=== PATIENT | female | born 1955 | race Caucasian/White ===

== ENCOUNTER 2021-09-18 09:12 | Observation (INO) | payer MEDICARE ==
[~2021-09-18] VITALS: Ht 154.9 cm; Wt 74.0 kg
[~2021-09-18 09:12] MED LIST: AMLO2.5T2 PO; ATORVASTATIN CA80 MG; GABA300C18 PO; GLIP5TAB22; LISI1TAB39 PO; METF10007; SERT-267
[2021-09-18 09:36] LABS: BASO # 0.1 x10^3/uL (0.0-0.2); BASO % 1 % (0-3); EOS # 0.1 x10^3/uL (0.0-0.7); EOS % 1 % (0-3); HEMATOCRIT 46.8 % (36.0-47.0); HEMOGLOBIN 15.2 g/dL (12.0-15.5); LYMPH % 29 % (24-48); MEAN CORPUSCULAR HEMOGLOBIN 28 pg (25-35); MEAN CORPUSCULAR HGB CONC 33 g/dL (31-37); MEAN CORPUSCULAR VOLUME 86 fL (79-100); MONO # 0.5 x10^3/uL (0.0-1.1); MONO % 8 % (0-9); NEUT # 4.2 x10^3/uL (1.8-7.7); NEUT % 62 % (31-73); PLATELET COUNT 279 x10^3/uL (140-400); RED BLOOD COUNT 5.47 x10^6/uL (3.50-5.40); RED CELL DISTRIBUTION WIDTH 13.1 % (11.5-14.5); WHITE BLOOD COUNT 6.9 x10^3/uL (4.0-11.0)
[2021-09-18] MEDS ORDERED: CONTRAST GIVEN. MC PRN (09:45)
[2021-09-18] MEDS ORDERED: IOHEXOL 300 MG/ML 100ML VIAL. IV ONE (09:45)
[2021-09-18 09:52] LABS: PROTHROMBIN TIME PATIENT 11.8 SEC (11.7-14.0)
[2021-09-18 09:54] LABS: CALCIUM 8.4 mg/dL (8.5-10.1); CREATININE 0.8 mg/dL (0.6-1.0); GFR 71.5
[2021-09-18 09:57] LABS: ACETAMIN < 2 mcg/ml (10-30); ETHANOL < 10 mg/dL (0-10); SALIC 1.4 mg/dL (2.8-20.0)
[2021-09-18 09:59] LABS: D-DIMER 0.5 ug/mlFEU (0.00-0.50)
[2021-09-18 10:07] LABS: ALBUMIN 2.9 g/dL (3.4-5.0); ALBUMIN/GLOBULIN RATIO 0.8 (1.0-1.7); MAGNESIUM 1.9 mg/dL (1.8-2.4); TOTAL BILIRUBIN 0.3 mg/dL (0.2-1.0); TOTAL PROTEIN 6.4 g/dL (6.4-8.2)
--- NOTE | 2021-09-18 10:16 | RAD ---
CT STROKE HEAD W/O Date: 09/18/2021 9:25 AM Clinical Indication: code stroke, difficulty speaking Comparison: None. Technique: 5 mm axial tomographic images were obtained of the head without contrast. These were view ed on brain and bone windows. One or more of the following dose reduction techniques were utilized: A utomated exposure control (AEC), Adjustment of mA and/or kV according to patient size, Use of iterati ve reconstruction technique such as ASiR, CT scan done according to ALARA and image gently/image garcia ly Findings: The brain parenchyma is normal in attenuation. No intra- or extra-axial mass or fluid collection. No acute hemorrhage. The ventricles are normal in size, shape, and morphology. The aviles-white matter juan ction is normal. The subarachnoid cisterns are patent. The visualized paranasal sinuses are normal. The visualized portions of the orbits and globes are no rmal. The mastoid air cells are clear. The color matcher topogram shows no lytic lesion or fracture. Impression: No acute hemorrhage or large territory aviles-white loss. FOR INTERNAL CODING PURPOSES Critical result: Findings discussed with NEY LACY MD at 09/18/2021 9:35 AM. RESULT CODE: (C) Electronically signed by: Will Carrasco MD (09/18/2021 10:13 AM) [id number]
--- NOTE | 2021-09-18 10:45 | RAD ---
EXAMINATION: Chest radiograph. VIEWS: Single AP view of the chest COMPARISON: Chest radiograph from 04/09/2015 INDICATION:66 years, Female, CVA. FINDINGS: Normal cardiomediastinal silhouette. Diffuse increased interstitial markings favoring chronic interst itial lung disease. Bibasilar linear opacities favoring subsegmental atelectasis. Likely calcified bi lateral hilar lymph nodes/granulomas. No pleural effusion or pneumothorax. No acute osseous process. IMPRESSION: Pulmonary findings favor chronic interstitial changes versus mild interstitial pulmonary edema with l ikely bibasilar subsegmental atelectasis. Electronically signed by: Jonathan Rose DO (09/18/2021 10:43 AM) [id number]
--- NOTE | 2021-09-18 10:45 | RAD ---
CTA HEAD History: CVA. Difficulty speaking. Technique: After bolus of intravenous contrast, volumetric CT data acquisition was acquired of the he ad. Multiplanar reconstruction images to include MIP and 3-D reconstruction images are submitted. Any determination of stenosis is based on NASCET criteria. Comparison: CT head 09/18/2021 Findings: ICA: No stenosis, occlusion or aneurysm. MCA: No stenosis, occlusion or aneurysm. ELEN: Severe stenosis of the precommunicating left ELEN at the origin from the left ICA with approximat oscar 3 mm segment of barely perceivable string-like enhancement (axial 158). Otherwise the left ELEN is normal caliber and normally enhancing, possibly in part via the anterior communicating. The right AC A is normal. CHARTER COACH DRIVER: No stenosis, occlusion or aneurysm. Basilar artery: No stenosis, occlusion or aneurysm. Distal vertebral arteries: No stenosis, occlusion or aneurysm. Impression: Severe stenosis of a short 3 mm segment of the origin of the pre-communicating left ELEN with normal c aliber and enhancement distally within the remainder the left ELEN. Findings discussed with NEY LACY MD at 09/18/2021 10:40 AM. FOR INTERNAL CODING PURPOSES RESULT CODE: (C) Exposure: One or more of the following individualized dose reduction techniques were utilized for thi s examination: 1. Automated exposure control 2. Adjustment of the mA and/or kV according to patient size 3. Use of iterative reconstruction technique. Electronically signed by: Landry Ferreira MD (09/18/2021 10:43 AM) [id number]
[2021-09-18 10:47] LABS: INFLUENZA A PATIENT NEGATIVE (NEGATIVE); INFLUENZA B PATIENT NEGATIVE (NEGATIVE)
--- NOTE | 2021-09-18 11:22 | PHYS DOC ---
Past Medical History Past Medical History: Diabetes-Type II, High Cholesterol, Hypertension Past Surgical History: Appendectomy, Knee Replacement, Tonsillectomy Additional Past Surgical Histo: GANGLIAN CYST Smoking Status: Never Smoker Alcohol Use: Rarely Drug Use: None Adult General Chief Complaint Chief Complaint: NEURO SYMPTOMS/DEFICITS HPI HPI Patient is a 66 year old female who presents with strokelike symptoms decided yesterday afternoon. Patient has had trouble finding her words according to family members. She normally is alert and appropriate but yesterday she began to speak in short sentences that were not complete. She did not have any focal areas of weakness or numbness nor has she developed any worsening of symptoms. The patient does seem to be fairly alert right now and is answering questions appropriately. At time she does struggle to find words though. No fever, no head injury or recent trauma. She denies chest pain, shortness of breath or abdominal complaints. Review of Systems Review of Systems Constitutional: Denies fever Eyes: Denies change in visual acuity or eye pain HENT: Denies sore throat Respiratory: Denies shortness of breath Cardiovascular: Denies chest pain GI: Denies abd pain : Denies dysuria Musculoskeletal: Denies back or extremity injury Integument: Denies rash or skin lesions Neurologic: Denies headache, focal weakness or sensory changes All other systems were reviewed and found to be within normal limits, except as documented in this note. Current Medications Current Medications Current Medications Medications (Trade) Dose Ordered Sig/Tong Start Time Stop Time Status Last Admin Dose Admin Info (CONTRAST GIVEN -- Rx MONITORING) 1 each PRN DAILY PRN 09/18/21 09:45 09/20/21 09:44 Iohexol (Omnipaque 300 Mg/ml) 75 ml 1X ONCE 09/18/21 09:45 09/18/21 09:46 DC 09/18/21 09:46 75 ML Allergies Allergies Allergies Coded Allergies Type Severity Reaction Last Updated Verified nitroglycerin Adverse Reaction Severe SEIZURE 09/18/21 No Physical Exam Physical Exam Constitutional: Well developed, well nourished, no acute distress, non-toxic appearance. HENT: Normocephalic, atraumatic, bilateral external ears normal, mucosa moist, nose normal. Eyes: EOMI, conjunctiva normal, no discharge. Neck: Normal range of motion, supple, no stridor, no meningeal signs. Cardiovascular: Regular rate and rhythm Lungs & Thorax: Bilateral breath sounds clear to auscultation Abdomen: Soft, no tenderness or obvious masses Skin: Warm, dry, no erythema, no rash. Extremities: No tenderness, no cyanosis, no clubbing, ROM intact, no edema. Neurologic: Alert and oriented, normal motor function, normal sensory function grossly. NIHSS score of 2 for loss of right nasolabial fold slightly and loss of pinprick to left forearm slightly. Psychologic: Affect normal, judgement normal, mood normal. Current Patient Data Vital Signs Vital Signs Date Time Temp Pulse Resp B/P (MAP) Pulse Ox O2 Delivery O2 Flow Rate FiO2 09/18/21 10:19 94 14 179/92 (121) 94 Room Air 09/18/21 09:15 98.6 98.6 Lab Values Laboratory Tests Test 09/18/21 09:16 09/18/21 09:20 09/18/21 09:35 09/18/21 10:12 Glucose (Fingerstick) 267 mg/dL (70-99) H White Blood Count 6.9 x10^3/uL (4.0-11.0) Red Blood Count 5.47 x10^6/uL (3.50-5.40) H Hemoglobin 15.2 g/dL (12.0-15.5) Hematocrit 46.8 % (36.0-47.0) Mean Corpuscular Volume 86 fL (79-100) Mean Corpuscular Hemoglobin 28 pg (25-35) Mean Corpuscular Hemoglobin Concent 33 g/dL (31-37) Red Cell Distribution Width 13.1 % (11.5-14.5) Platelet Count 279 x10^3/uL (140-400) Neutrophils (%) (Auto) 62 % (31-73) Lymphocytes (%) (Auto) 29 % (24-48) Monocytes (%) (Auto) 8 % (0-9) Eosinophils (%) (Auto) 1 % (0-3) Basophils (%) (Auto) 1 % (0-3) Neutrophils # (Auto) 4.2 x10^3/uL (1.8-7.7) Lymphocytes # (Auto) 2.0 x10^3/uL (1.0-4.8) Monocytes # (Auto) 0.5 x10^3/uL (0.0-1.1) Eosinophils # (Auto) 0.1 x10^3/uL (0.0-0.7) Basophils # (Auto) 0.1 x10^3/uL (0.0-0.2) Prothrombin Time 11.8 SEC (11.7-14.0) Prothrombin Time INR 0.9 (0.8-1.1) Activated Partial Thromboplast Time 17 SEC (24-38) L D-Dimer (Ute) 0.50 ug/mlFEU (0.00-0.50) Sodium Level 140 mmol/L (136-145) Potassium Level 4.0 mmol/L (3.5-5.1) Chloride Level 103 mmol/L (98-107) Carbon Dioxide Level 27 mmol/L (21-32) Anion Gap 10 (6-14) Blood Urea Nitrogen 15 mg/dL (7-20) Creatinine 0.8 mg/dL (0.6-1.0) Estimated GFR (Cockcroft-Gault) 71.5 BUN/Creatinine Ratio 19 (6-20) Glucose Level 285 mg/dL (70-99) H Lactic Acid Level 1.2 mmol/L (0.4-2.0) Calcium Level 8.4 mg/dL (8.5-10.1) L Magnesium Level 1.9 mg/dL (1.8-2.4) Total Bilirubin 0.3 mg/dL (0.2-1.0) Aspartate Amino Transferase (AST) 13 U/L (15-37) L Alanine Aminotransferase (ALT) 20 U/L (14-59) Alkaline Phosphatase 108 U/L (46-116) Troponin I High Sensitivity 7 ng/L (4-50) RJ-Gdc-C-Type Natriuretic Peptide 37 pg/mL (0-124) Total Protein 6.4 g/dL (6.4-8.2) Albumin 2.9 g/dL (3.4-5.0) L Albumin/Globulin Ratio 0.8 (1.0-1.7) L Lipase 80 U/L (73-393) Salicylates Level 1.4 mg/dL (2.8-20.0) L Salicylate Last Dose Date Unknown Salicylate Last Dose Time Unknown Acetaminophen Level < 2 mcg/ml (10-30) L Acetaminophen Last Dose Date Unknown Acetaminophen Last Dose Time Unknown Ethyl Alcohol Level < 10 mg/dL (0-10) Ammonia 11 mcmol/L (11-34) Influenza Type A Antigen Negative (NEGATIVE) Influenza Type B Antigen Negative (NEGATIVE) SARS-CoV-2 Antigen (Rapid) Negative (NEGATIVE) Laboratory Tests 09/18/21 09:20 Laboratory Tests 09/18/21 09:20 EKG EKG [] Interpretation Time: Twelve-lead EKG demonstrates a sinus rhythm with a rate of 95. VT, QRS and QT corrected are within normal limits. No ST segment elevation or depression. Radiology/Procedures Radiology/Procedures [] Impressions: PATIENT: LUCAS WATT BACCOUNT: [id number]#: [id number] : 1955 LOCATION: ER AGE: 66 SEX: F EXAM STATUS: PRE ER ORD. PHYSICIAN: NEY LACY MD REASON: code stroke, difficulty speaking PROCEDURE: CT CODE STROKE HEAD WO CT STROKE HEAD W/O Date: 09/18/2021 9:25 AM Clinical Indication: code stroke, difficulty speaking Comparison: None. Technique: 5 mm axial tomographic images were obtained of the head without contrast. These were viewed on brain and bone windows. One or more of the following dose reduction techniques were utilized: Automated exposure control (AEC), Adjustment of mA and/or kV according to patient size, Use of iterative reconstruction technique such as ASiR, CT scan done according to ALARA and image gently/image wisely Findings: The brain parenchyma is normal in attenuation. No intra- or extra-axial mass or fluid collection. No acute hemorrhage. The ventricles are normal in size, shape, and morphology. The aviles-white matter junction is normal. The subarachnoid cisterns are patent. The visualized paranasal sinuses are normal. The visualized portions of the orbits and globes are normal. The mastoid air cells are clear. The molder setter topogram shows no lytic lesion or fracture. Impression: No acute hemorrhage or large territory aviles-white loss. FOR INTERNAL CODING PURPOSES Critical result: Findings discussed with NEY LACY MD at 09/18/2021 9:35 AM. RESULT CODE: (C) Electronically signed by: Chris Carrasco MD (09/18/2021 10:13 AM) [id number] DICTATED and SIGNED BY: CHRIS CARRASCO MD DATE: 09/18/21 1010 PATIENT: LUCAS WATT ACCOUNT: [id number] : 1955 LOCATION: ER AGE: 66 SEX: F EXAM STATUS: REG ER ORD. PHYSICIAN: NEY LACY MD REASON: cva PROCEDURE: CT ANGIOGRAPHY HEAD CTA HEAD History: CVA. Difficulty speaking. Technique: After bolus of intravenous contrast, volumetric CT data acquisition was acquired of the head. Multiplanar reconstruction images to include MIP and 3-D reconstruction images are submitted. Any determination of stenosis is based on NASCET criteria. Comparison: CT head 09/18/2021 Findings: ICA: No stenosis, occlusion or aneurysm. MCA: No stenosis, occlusion or aneurysm. ELEN: Severe stenosis of the precommunicating left ELEN at the origin from the left ICA with approximately 3 mm segment of barely perceivable string-like enhancement (axial 158). Otherwise the left ELEN is normal caliber and normally enhancing, possibly in part via the anterior communicating. The right ELEN is normal. SUPERINTENDENT BOARD MILL: No stenosis, occlusion or aneurysm. Basilar artery: No stenosis, occlusion or aneurysm. Distal vertebral arteries: No stenosis, occlusion or aneurysm. Impression: Severe stenosis of a short 3 mm segment of the origin of the pre-communicating left ELEN with normal caliber and enhancement distally within the remainder the left ELEN. Findings discussed with NEY LACY MD at 09/18/2021 10:40 AM. FOR INTERNAL CODING PURPOSES RESULT CODE: (C) Exposure: One or more of the following individualized dose reduction techniques were utilized for this examination: 1. Automated exposure control 2. Adjustment of the mA and/or kV according to patient size 3. Use of iterative reconstruction technique. Electronically signed by: Landry Cash MD (09/18/2021 10:43 AM) [id number] DICTATED and SIGNED BY: LANDRY CASH MD DATE: 09/18/21 1034 PATIENT: LUCAS WATT ACCOUNT: [id number] : 1955 LOCATION: ER AGE: 66 SEX: F EXAM STATUS: REG ER ORD. PHYSICIAN: NEY LACY MD REASON: cva PROCEDURE: CHEST AP ONLY EXAMINATION: Chest radiograph. VIEWS: Single AP view of the chest COMPARISON: Chest radiograph from 04/09/2015 INDICATION:66 years, Female, CVA. FINDINGS: Normal cardiomediastinal silhouette. Diffuse increased interstitial markings favoring chronic interstitial lung disease. Bibasilar linear opacities favoring subsegmental atelectasis. Likely calcified bilateral hilar lymph nodes/gran ulomas. No pleural effusion or pneumothorax. No acute osseous process. IMPRESSION: Pulmonary findings favor chronic interstitial changes versus mild interstitial pulmonary edema with likely bibasilar subsegmental atelectasis. Electronically signed by: Alanna Rose DO (09/18/2021 10:43 AM) [id number] DICTATED and SIGNED BY: ALANNA ROSE DO DATE: 09/18/21 1040 Course & Med Decision Making Course & Med Decision Making Pertinent Labs and Imaging studies reviewed. (See chart for details) [] This is a 66-year-old female presents with an expressive aphasia which seems to be improving. CT scan of the head is negative, contrasted CT demonstrates a stenotic area at the origin of the left anterior communicating artery. Lab studies are unrevealing. At this time we will keep the patient in the hospital for further neurologic assessment and recommendations, patient is in stable condition at this time. Dragon Disclaimer Dragon Disclaimer This electronic medical record was generated, in whole or in part, using a voice recognition dictation system. Departure Departure Impression: Primary Impression: Aphasia Disposition: ADMITTED INPATIENT Condition: STABLE Referrals: KRYSTEN BARRERA MD (PCP) NEY LACY MD Sep 18, 2021 11:22
[2021-09-18 11:32] LABS: BASE EXCESS ABG -3 mmol/L (-3-3); HCO3 ABG 22 mmol/L (21-28); PCO2 ABG 39 mmHg (35-46); PO2 ABG 75 mmHg (65-108); SAT O2 ABG 94 % (92-99)
[2021-09-18 11:36] LABS: FIO2 ABG RA
--- NOTE | 2021-09-18 12:44 | HP ---
DATE OF SERVICE: 09/18/2021 ADMIT DATE: 09/18/2021 CHIEF COMPLAINT: Speech changes. HISTORY OF PRESENT ILLNESS: The patient is a pleasant 66-year-old female who presented to the ER with speech changes. She is speaking in short sentences. She can only get a word or two out. She is having problems finding her words. Clinically, seems like she may be having some early stroke symptoms. I discussed the case with ER physician. We are going to admit the patient and consult Neurology. PAST MEDICAL HISTORY: Diabetes, hypertension, hyperlipidemia, appendectomy, knee replacement, tonsillectomy, ganglion cyst surgery. ALLERGIES: NITROGLYCERIN. FAMILY HISTORY: Diabetes. SOCIAL HISTORY: She does not drink, smoke or take drugs. MEDICATIONS: Reviewed. Please refer to the MRAD. REVIEW OF SYSTEMS: Difficult to obtain as she cannot speak very well. PHYSICAL EXAMINATION: VITALS: Within normal limits and are stable. GENERAL: She is a little anxious. HEENT: Normal cephalic atraumatic, external auditory canals are patent. EYES: Extraocular muscles are intact, pupils are equally round and reactive to light and accommodation. MUSCULOSKELETAL: Well developed, well nourished, good range of motion. ENDOCRINE: No thyromegaly was palpated. LYMPHATICS: No cervical chain or axillary nodes were noted. HEMATOPOIETIC: No bruising. NECK: Supple, no JVD, no thyromegaly was noted. LUNGS: Clear to auscultation in all lung ramirez without rhonchi or wheezing. HEART: RRR, S1, S2 present. Peripheral pulses intact, no obvious murmurs were noted. ABDOMEN: Soft, nontender. Positive bowel sounds no organomegaly, normal bowel sounds. EXTREMITIES: Without any cyanosis, clubbing, or edema. Pedal pulses intact, Homans sign is negative. NEUROLOGIC: She has mild expressive aphasia. She is able to get a word or two out. PSYCHIATRIC: She is a little anxious. SKIN: No ulcerations or rashes, good skin turgor, no jaundice. VASCULAR: Good capillary refill, neurovascular bundle appears to be intact. LABORATORY DATA: White count 6.9, hemoglobin 15.2, platelets 279. Electrolytes are normal. INR is 0.9. Drug screen negative. COVID testing negative. DIAGNOSTIC DATA: CT of the head negative. ASSESSMENT AND PLAN: Stroke symptoms with mild expressive aphasia. The patient will be admitted. We will consult Neurology. Home medications. Deep vein thrombosis prophylaxis. Full code. Neuro checks q.4. PT, OT, speech therapy. Daily aspirin. JENNIFER/KALEN DR: Nando TID: [id number]
[2021-09-18 12:56] VITALS: BP 206/91
[2021-09-18] MEDS ORDERED: ASPIRIN CHEWABLE 81 MG TABLET. PO SCH (13:00)
[2021-09-18 13:28] LABS: BARBITURATES NEG (NEG); BENZODIAZEPINES NEG (NEG); CANNABINOIDS NEG (NEG); COCAINE NEG (NEG); METHADONE NEG (NEG); OPIATES NEG (NEG); PHENCYCLIDINE NEG (NEG)
[2021-09-18 13:30] LABS: BACTERIA,URINE FEW /HPF (0-FEW); RBC,URINE 0 /HPF (0-2)
[2021-09-18 13:31] LABS: AMPHETAMINE/METHAMPHETAMINE NEG (NEG)
--- NOTE | 2021-09-18 13:40 | EKG ---
[facility] [address] [place] [address] Test Date: 2021-09-18 Test Time: 09:36:43 Pat Name: LUCAS WATT Department: Room: 208 1 Gender: F Hat Measurer: : 1955 Requested By: NEY LACY Order Number: [id number] Reading MD: Catracho Carballo Measurements Intervals [place] Rate: 95 P: 41 TX: 158 QRS: 55 QRSD: 78 T: 28 QT: 346 QTc: 438 Interpretive Statements SINUS RHYTHM QRS(T) CONTOUR ABNORMALITY CONSIDER ANTEROSEPTAL MYOCARDIAL DAMAGE POSSIBLY ABNORMAL ECG RI6.01 Compared to ECG 04/10/2015 13:48:02 No significant changes Electronically Signed On 09-22-2021 21:45:31 CDT by Catracho Carballo
--- NOTE | 2021-09-18 14:00 | NUR ---
66 Y/O to 208 from ER . [facility]/ slight change documented. Assist to BR -steady gait w little assist required. Aby swallow .study completed. passed-late lunch order placed.Tolerated meal. printed handout at patients bedside.
[2021-09-18 15:00] VITALS: BP 164/86
--- NOTE | 2021-09-18 15:28 | PDOC2 ---
NEUROLOGY CONSULT Date of Service DOS: DATE: 09/18/21 TIME: 15:20 Reason for Consult Reason for Consult: Stroke symptoms, aphasia Referring Physician Referring Physician: Dr. Valdivia Source Source: Chart review, Patient History of Present Illness History of Present Illness The patient is a 66-year-old right-handed female who noticed the onset of difficulty getting her words out yesterday afternoon about 1500. Symptoms persisted today so she came to the emergency department at the urging of her family members. She has no prior history of stroke, seizure, or head injury. She does have hypertension and diabetes but her doctor in [place] took her off all of her medications a couple years ago because she was doing well. She admits, though, that she has not seen a physician in over a year. There is no history of headaches. She is feeling a little better today. Past Medical History Cardiovascular: HTN, Hyperlipidemia Endocrine: Diabetes Past Surgical History Past Surgical History: Appendectomy, Total knee replacement, Tonsillectomy, Other (Ganglion cyst) Family History Family History: Cancer Social History Social History 9 months ago, moved from [place] to stay with friends here, she also commutes to [place] to take care of her ill mother. No tobacco, rare alcohol Current Medications Current Medications Current Medications Iohexol (Omnipaque 300 Mg/ml) 75 ml 1X ONCE IV Last administered on 09/18/21at 09:46; Start 09/18/21 at 09:45; Stop 09/18/21 at 09:46; Status DC Info (CONTRAST GIVEN -- Rx MONITORING) 1 each PRN DAILY PRN MC SEE COMMENTS; Start 09/18/21 at 09:45; Stop 09/20/21 at 09:44 Aspirin (Aspirin Chewable) 81 mg DAILYWBKFT PO ; Start 09/18/21 at 13:00 Active Scripts Active Norvasc (Amlodipine Besylate) 2.5 Mg Tablet 2.5 Mg PO DAILY Reported Sertraline Hcl 50 Mg Tablet DAILY08 Atorvastatin Calcium 80 Mg Tablet HS Metformin Hcl 1,000 Mg Tablet BID Glipizide Er (Glipizide) 5 Mg Tab.er.24 Gabapentin 300 Mg Capsule 1 PO TID Allergies Allergies: Coded Allergies: nitroglycerin (Unverified Adverse Reaction, Severe, SEIZURE, 09/18/21) Altered mental status when given. ROS Review of System Negative for fever, chills, weight loss, shortness of breath, chest pain, indigestion, hematochezia, melena, and dysuria. Full 14-point review of systems is negative. Physical Exam Physical Examination General: Well-developed, well-nourished white female in no acute distress HEENT: Normocephalic andatraumatic. Tympanic membranes clear.Temporal arteriespulsatile and nontender.Fundoscopic exam unremarkable Neck: Supple without bruit, no meningismus Musculoskeletal: Stability:see neurologic. Gait exam:see neurologic. Tone:see neurologic.Strength:see neurologic. Neurological: Mental Status:intact, orientation, memory, attention span/concentration, language, fund of knowledge: Knows date and location, names and repeats well, speech is just a little hesitant. Cranial Nerves:Pupils equal and reactive to light, extraocular movements areintact, visual ramirez are full to confrontation. Facial sensation is normal. There is no facial asymmetry. Vestibulo-ocular reflex is intact. Palate elevates and tongue protrudes in midline. All other cranial related problems are negative except as mentioned before.Reflexes:2+ and symmetric with flexor plantar responses. Motor:5/5 strength with normal tone and bulk. Coordination:Finger-nose finger and [id number] testing are normal. Rapid alternating movements and fine finger movements are intact. Gait:Normal, including tandem. Sensory:Normal pinprick, vibration, light touch, proprioception. Vitals VITALS Vital Signs Date Time Temp Pulse Resp B/P (MAP) Pulse Ox O2 Delivery O2 Flow Rate FiO2 09/18/21 12:56 98.1 88 20 206/91 (129) 95 Room Air 98.1 Labs Labs Laboratory Tests Test 09/18/21 09:16 09/18/21 09:20 09/18/21 09:24 09/18/21 09:35 Glucose (Fingerstick) 267 mg/dL (70-99) White Blood Count 6.9 x10^3/uL (4.0-11.0) Red Blood Count 5.47 x10^6/uL (3.50-5.40) Hemoglobin 15.2 g/dL (12.0-15.5) Hematocrit 46.8 % (36.0-47.0) Mean Corpuscular Volume 86 fL (79-100) Mean Corpuscular Hemoglobin 28 pg (25-35) Mean Corpuscular Hemoglobin Concent 33 g/dL (31-37) Red Cell Distribution Width 13.1 % (11.5-14.5) Platelet Count 279 x10^3/uL (140-400) Neutrophils (%) (Auto) 62 % (31-73) Lymphocytes (%) (Auto) 29 % (24-48) Monocytes (%) (Auto) 8 % (0-9) Eosinophils (%) (Auto) 1 % (0-3) Basophils (%) (Auto) 1 % (0-3) Neutrophils # (Auto) 4.2 x10^3/uL (1.8-7.7) Lymphocytes # (Auto) 2.0 x10^3/uL (1.0-4.8) Monocytes # (Auto) 0.5 x10^3/uL (0.0-1.1) Eosinophils # (Auto) 0.1 x10^3/uL (0.0-0.7) Basophils # (Auto) 0.1 x10^3/uL (0.0-0.2) Prothrombin Time 11.8 SEC (11.7-14.0) Prothromb Time International Ratio 0.9 (0.8-1.1) Activated Partial Thromboplast Time 17 SEC (24-38) D-Dimer (Ute) 0.50 ug/mlFEU (0.00-0.50) Sodium Level 140 mmol/L (136-145) Potassium Level 4.0 mmol/L (3.5-5.1) Chloride Level 103 mmol/L (98-107) Carbon Dioxide Level 27 mmol/L (21-32) Anion Gap 10 (6-14) Blood Urea Nitrogen 15 mg/dL (7-20) Creatinine 0.8 mg/dL (0.6-1.0) Estimated GFR (Cockcroft-Gault) 71.5 BUN/Creatinine Ratio 19 (6-20) Glucose Level 285 mg/dL (70-99) Lactic Acid Level 1.2 mmol/L (0.4-2.0) Calcium Level 8.4 mg/dL (8.5-10.1) Magnesium Level 1.9 mg/dL (1.8-2.4) Total Bilirubin 0.3 mg/dL (0.2-1.0) Aspartate Amino Transf (AST/SGOT) 13 U/L (15-37) Alanine Aminotransferase (ALT/SGPT) 20 U/L (14-59) Alkaline Phosphatase 108 U/L (46-116) Troponin I High Sensitivity 7 ng/L (4-50) TW-Gfp-T-Type Natriuretic Peptide 37 pg/mL (0-124) Total Protein 6.4 g/dL (6.4-8.2) Albumin 2.9 g/dL (3.4-5.0) Albumin/Globulin Ratio 0.8 (1.0-1.7) Lipase 80 U/L (73-393) Salicylates Level 1.4 mg/dL (2.8-20.0) Salicylate Last Dose Date Unknown Salicylate Last Dose Time Unknown Acetaminophen Level < 2 mcg/ml (10-30) Acetaminophen Last Dose Date Unknown Acetaminophen Last Dose Time Unknown Ethyl Alcohol Level < 10 mg/dL (0-10) O2 Saturation 94 % (92-99) Arterial Blood pH 7.38 (7.35-7.45) Arterial Blood pCO2 at Patient Temp 39 mmHg (35-46) Arterial Blood pO2 at Patient Temp 75 mmHg (65-108) Arterial Blood HCO3 22 mmol/L (21-28) Arterial Blood Base Excess -3 mmol/L (-3-3) FiO2 Ra Ammonia 11 mcmol/L (11-34) Test 09/18/21 10:12 09/18/21 13:02 Influenza Type A Antigen Negative (NEGATIVE) Influenza Type B Antigen Negative (NEGATIVE) SARS-CoV-2 Antigen (Rapid) Negative (NEGATIVE) Urine Collection Type Unknown Urine Color (Auto) Light yellow Urine Turbidity Clear Urine pH (Auto) 6.5 (<5.0-8.0) Urine Specific [place] >1.050 (1.000-1.030) Urine Protein (Auto) Negative mg/dL (Negative) Urine Glucose (Auto)(UA) 500 mg/dL (Negative) Urine Ketones (Auto) Negative mg/dL (Negative) Urine Blood (Auto) Negative (Negative) Urine Nitrite Negative (Negative) Urine Bilirubin (Auto) Negative (Negative) Urine Urobilinogen (Auto) Normal mg/dL (Normal) Urine Leukocyte Esterase (Auto) Small (Negative) Urine RBC 0 /HPF (0-2) Urine WBC 5-10 /HPF (0-4) Urine Squamous Epithelial Cells Mod /LPF Urine Bacteria Few /HPF (0-FEW) Urine Opiates Screen Neg (NEG) Urine Methadone Screen Neg (NEG) Urine Barbiturates Neg (NEG) Urine Phencyclidine Screen Neg (NEG) Urine Amphetamine/Methamphetamine Neg (NEG) Urine Benzodiazepines Screen Neg (NEG) Urine Cocaine Screen Neg (NEG) Urine Cannabinoids Screen Neg (NEG) Urine Ethyl Alcohol Neg (NEG) Laboratory Tests Test 09/18/21 09:16 09/18/21 09:20 09/18/21 09:24 09/18/21 09:35 Glucose (Fingerstick) 267 mg/dL (70-99) White Blood Count 6.9 x10^3/uL (4.0-11.0) Red Blood Count 5.47 x10^6/uL (3.50-5.40) Hemoglobin 15.2 g/dL (12.0-15.5) Hematocrit 46.8 % (36.0-47.0) Mean Corpuscular Volume 86 fL (79-100) Mean Corpuscular Hemoglobin 28 pg (25-35) Mean Corpuscular Hemoglobin Concent 33 g/dL (31-37) Red Cell Distribution Width 13.1 % (11.5-14.5) Platelet Count 279 x10^3/uL (140-400) Neutrophils (%) (Auto) 62 % (31-73) Lymphocytes (%) (Auto) 29 % (24-48) Monocytes (%) (Auto) 8 % (0-9) Eosinophils (%) (Auto) 1 % (0-3) Basophils (%) (Auto) 1 % (0-3) Neutrophils # (Auto) 4.2 x10^3/uL (1.8-7.7) Lymphocytes # (Auto) 2.0 x10^3/uL (1.0-4.8) Monocytes # (Auto) 0.5 x10^3/uL (0.0-1.1) Eosinophils # (Auto) 0.1 x10^3/uL (0.0-0.7) Basophils # (Auto) 0.1 x10^3/uL (0.0-0.2) Prothrombin Time 11.8 SEC (11.7-14.0) Prothromb Time International Ratio 0.9 (0.8-1.1) Activated Partial Thromboplast Time 17 SEC (24-38) D-Dimer (Ute) 0.50 ug/mlFEU (0.00-0.50) Sodium Level 140 mmol/L (136-145) Potassium Level 4.0 mmol/L (3.5-5.1) Chloride Level 103 mmol/L (98-107) Carbon Dioxide Level 27 mmol/L (21-32) Anion Gap 10 (6-14) Blood Urea Nitrogen 15 mg/dL (7-20) Creatinine 0.8 mg/dL (0.6-1.0) Estimated GFR (Cockcroft-Gault) 71.5 BUN/Creatinine Ratio 19 (6-20) Glucose Level 285 mg/dL (70-99) Lactic Acid Level 1.2 mmol/L (0.4-2.0) Calcium Level 8.4 mg/dL (8.5-10.1) Magnesium Level 1.9 mg/dL (1.8-2.4) Total Bilirubin 0.3 mg/dL (0.2-1.0) Aspartate Amino Transf (AST/SGOT) 13 U/L (15-37) Alanine Aminotransferase (ALT/SGPT) 20 U/L (14-59) Alkaline Phosphatase 108 U/L (46-116) Troponin I High Sensitivity 7 ng/L (4-50) XO-Ldx-E-Type Natriuretic Peptide 37 pg/mL (0-124) Total Protein 6.4 g/dL (6.4-8.2) Albumin 2.9 g/dL (3.4-5.0) Albumin/Globulin Ratio 0.8 (1.0-1.7) Lipase 80 U/L (73-393) Salicylates Level 1.4 mg/dL (2.8-20.0) Salicylate Last Dose Date Unknown Salicylate Last Dose Time Unknown Acetaminophen Level < 2 mcg/ml (10-30) Acetaminophen Last Dose Date Unknown Acetaminophen Last Dose Time Unknown Ethyl Alcohol Level < 10 mg/dL (0-10) O2 Saturation 94 % (92-99) Arterial Blood pH 7.38 (7.35-7.45) Arterial Blood pCO2 at Patient Temp 39 mmHg (35-46) Arterial Blood pO2 at Patient Temp 75 mmHg (65-108) Arterial Blood HCO3 22 mmol/L (21-28) Arterial Blood Base Excess -3 mmol/L (-3-3) FiO2 Ra Ammonia 11 mcmol/L (11-34) Test 09/18/21 10:12 09/18/21 13:02 Influenza Type A Antigen Negative (NEGATIVE) Influenza Type B Antigen Negative (NEGATIVE) SARS-CoV-2 Antigen (Rapid) Negative (NEGATIVE) Urine Collection Type Unknown Urine Color (Auto) Light yellow Urine Turbidity Clear Urine pH (Auto) 6.5 (<5.0-8.0) Urine Specific [place] >1.050 (1.000-1.030) Urine Protein (Auto) Negative mg/dL (Negative) Urine Glucose (Auto)(UA) 500 mg/dL (Negative) Urine Ketones (Auto) Negative mg/dL (Negative) Urine Blood (Auto) Negative (Negative) Urine Nitrite Negative (Negative) Urine Bilirubin (Auto) Negative (Negative) Urine Urobilinogen (Auto) Normal mg/dL (Normal) Urine Leukocyte Esterase (Auto) Small (Negative) Urine RBC 0 /HPF (0-2) Urine WBC 5-10 /HPF (0-4) Urine Squamous Epithelial Cells Mod /LPF Urine Bacteria Few /HPF (0-FEW) Urine Opiates Screen Neg (NEG) Urine Methadone Screen Neg (NEG) Urine Barbiturates Neg (NEG) Urine Phencyclidine Screen Neg (NEG) Urine Amphetamine/Methamphetamine Neg (NEG) Urine Benzodiazepines Screen Neg (NEG) Urine Cocaine Screen Neg (NEG) Urine Cannabinoids Screen Neg (NEG) Urine Ethyl Alcohol Neg (NEG) Images Images CT STROKE HEAD W/O Date: 09/18/2021 9:25 AM Clinical Indication: code stroke, difficulty speaking Comparison: None. Technique: 5 mm axial tomographic images were obtained of the head without contrast. These were viewed on brain and bone windows. One or more of the following dose reduction techniques were utilized: Automated exposure control (AEC), Adjustment of mA and/or kV according to patient size, Use of iterative reconstruction technique such as ASiR, CT scan done according to ALARA and image gently/image wisely Findings: The brain parenchyma is normal in attenuation. No intra- or extra-axial mass or fluid collection. No acute hemorrhage. The ventricles are normal in size, shape, and morphology. The aviles-white matter junction is normal. The subarachnoid cisterns are patent. The visualized paranasal sinuses are normal. The visualized portions of the orbits and globes are normal. The mastoid air cells are clear. The biomass facilitator topogram shows no lytic lesion or fracture. Impression: No acute hemorrhage or large territory aviles-white loss. CTA HEAD History: CVA. Difficulty speaking. Technique: After bolus of intravenous contrast, volumetric CT data acquisition was acquired of the head. Multiplanar reconstruction images to include MIP and 3-D reconstruction images are submitted. Any determination of stenosis is based on NASCET criteria. Comparison: CT head 09/18/2021 Findings: ICA: No stenosis, occlusion or aneurysm. MCA: No stenosis, occlusion or aneurysm. ELEN: Severe stenosis of the precommunicating left ELEN at the origin from the left ICA with approximately 3 mm segment of barely perceivable string-like enhancement (axial 158). Otherwise the left ELEN is normal caliber and normally enhancing, possibly in part via the anterior communicating. The right ELEN is normal. [employer] DEPARTMENT MANAGER: No stenosis, occlusion or aneurysm. Basilar artery: No stenosis, occlusion or aneurysm. Distal vertebral arteries: No stenosis, occlusion or aneurysm. Impression: Severe stenosis of a short 3 mm segment of the origin of the pre-communicating left ELEN with normal caliber and enhancement distally within the remainder the left ELEN. Assessment/Plan Assessment/Plan Impression: Lingering, mild aphasia, no focal findings otherwise, indicates a very small left frontal stroke. Interestingly, she has severe stenosis of a short 3 mm segment of the origin of the pre-communicating left anterior communicating artery which reconstitutes distally. One wonders if an acute thrombus formed and then dissipated History of hypertension, diabetes, hyperlipidemia but has been off medications for over a year. Recommendations: MRI of the brain Echocardiogram Physical, occupational, speech therapy Aspirin Statin depending on lipid profile No intervention required regarding the anterior cerebral artery stenosis unless she fails on medical therapy Permissive hypertension, stroke happened yesterday so I will tighten the parameters today to 190/110 Aim for discharge as soon as tomorrow. Thank you for letting me help with the patient's care. ARETHA ERVIN MD Sep 18, 2021 15:28
[2021-09-18 19:00] VITALS: BP 132/85
[2021-09-18 23:00] VITALS: BP 134/67
[2021-09-19 03:00] VITALS: BP 122/71
[2021-09-19 06:44] LABS: CHOLESTEROL/HDL RATIO 7.8
[2021-09-19 07:00] VITALS: BP 136/66
[2021-09-19] MEDS ORDERED: PERFLUTREN PROTEIN-A MICROSPHR 0.22 MG/ML 3 ML VIAL. IV ONE (07:45)
[2021-09-19] MEDS ORDERED: ASPIRIN 325 MG TABLET PO SCH (08:00)
--- NOTE | 2021-09-19 10:22 | PDOC ---
PROGRESS NOTES Date of Service DATE: 09/19/21 TIME: 10:20 Assessment Problems Medical Problems: (1) Aphasia Status: Acute Lingering, mild aphasia, no focal findings otherwise, indicates a very small left frontal stroke. Interestingly, she has severe stenosis of a short 3 mm segment of the origin of the pre-communicating left anterior communicating artery which reconstitutes distally. One wonders if an acute thrombus formed and then dissipated History of hypertension, diabetes, hyperlipidemia but has been off medications for over a year. 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 Oriented to time, place and person. PERRL. EOMI. CN: no focal findings. Muscle tone: normal. Muscle strength: 5/5 DTR: 2+ Plantar reflex: Flexor Gait: not examined in bed. Sensory exam: no abnormal findings. No cerebellar signs elicited. Review of Relevant I have reviewed the following items rik (where applicable) has been applied. Labs Laboratory Tests Test 09/18/21 09:16 09/18/21 09:20 09/18/21 09:24 09/18/21 09:35 Glucose (Fingerstick) 267 mg/dL (70-99) White Blood Count 6.9 x10^3/uL (4.0-11.0) Red Blood Count 5.47 x10^6/uL (3.50-5.40) Hemoglobin 15.2 g/dL (12.0-15.5) Hematocrit 46.8 % (36.0-47.0) Mean Corpuscular Volume 86 fL (79-100) Mean Corpuscular Hemoglobin 28 pg (25-35) Mean Corpuscular Hemoglobin Concent 33 g/dL (31-37) Red Cell Distribution Width 13.1 % (11.5-14.5) Platelet Count 279 x10^3/uL (140-400) Neutrophils (%) (Auto) 62 % (31-73) Lymphocytes (%) (Auto) 29 % (24-48) Monocytes (%) (Auto) 8 % (0-9) Eosinophils (%) (Auto) 1 % (0-3) Basophils (%) (Auto) 1 % (0-3) Neutrophils # (Auto) 4.2 x10^3/uL (1.8-7.7) Lymphocytes # (Auto) 2.0 x10^3/uL (1.0-4.8) Monocytes # (Auto) 0.5 x10^3/uL (0.0-1.1) Eosinophils # (Auto) 0.1 x10^3/uL (0.0-0.7) Basophils # (Auto) 0.1 x10^3/uL (0.0-0.2) Prothrombin Time 11.8 SEC (11.7-14.0) Prothromb Time International Ratio 0.9 (0.8-1.1) Activated Partial Thromboplast Time 17 SEC (24-38) D-Dimer (Ute) 0.50 ug/mlFEU (0.00-0.50) Sodium Level 140 mmol/L (136-145) Potassium Level 4.0 mmol/L (3.5-5.1) Chloride Level 103 mmol/L (98-107) Carbon Dioxide Level 27 mmol/L (21-32) Anion Gap 10 (6-14) Blood Urea Nitrogen 15 mg/dL (7-20) Creatinine 0.8 mg/dL (0.6-1.0) Estimated GFR (Cockcroft-Gault) 71.5 BUN/Creatinine Ratio 19 (6-20) Glucose Level 285 mg/dL (70-99) Lactic Acid Level 1.2 mmol/L (0.4-2.0) Calcium Level 8.4 mg/dL (8.5-10.1) Magnesium Level 1.9 mg/dL (1.8-2.4) Total Bilirubin 0.3 mg/dL (0.2-1.0) Aspartate Amino Transf (AST/SGOT) 13 U/L (15-37) Alanine Aminotransferase (ALT/SGPT) 20 U/L (14-59) Alkaline Phosphatase 108 U/L (46-116) Troponin I High Sensitivity 7 ng/L (4-50) DF-Bpr-B-Type Natriuretic Peptide 37 pg/mL (0-124) Total Protein 6.4 g/dL (6.4-8.2) Albumin 2.9 g/dL (3.4-5.0) Albumin/Globulin Ratio 0.8 (1.0-1.7) Lipase 80 U/L (73-393) Salicylates Level 1.4 mg/dL (2.8-20.0) Salicylate Last Dose Date Unknown Salicylate Last Dose Time Unknown Acetaminophen Level < 2 mcg/ml (10-30) Acetaminophen Last Dose Date Unknown Acetaminophen Last Dose Time Unknown Ethyl Alcohol Level < 10 mg/dL (0-10) O2 Saturation 94 % (92-99) Arterial Blood pH 7.38 (7.35-7.45) Arterial Blood pCO2 at Patient Temp 39 mmHg (35-46) Arterial Blood pO2 at Patient Temp 75 mmHg (65-108) Arterial Blood HCO3 22 mmol/L (21-28) Arterial Blood Base Excess -3 mmol/L (-3-3) FiO2 Ra Ammonia 11 mcmol/L (11-34) Test 09/18/21 10:12 09/18/21 13:02 09/18/21 21:12 09/19/21 05:25 Influenza Type A Antigen Negative (NEGATIVE) Influenza Type B Antigen Negative (NEGATIVE) SARS-CoV-2 Antigen (Rapid) Negative (NEGATIVE) Urine Collection Type Unknown Urine Color (Auto) Light yellow Urine Turbidity Clear Urine pH (Auto) 6.5 (<5.0-8.0) Urine Specific [place] >1.050 (1.000-1.030) Urine Protein (Auto) Negative mg/dL (Negative) Urine Glucose (Auto)(UA) 500 mg/dL (Negative) Urine Ketones (Auto) Negative mg/dL (Negative) Urine Blood (Auto) Negative (Negative) Urine Nitrite Negative (Negative) Urine Bilirubin (Auto) Negative (Negative) Urine Urobilinogen (Auto) Normal mg/dL (Normal) Urine Leukocyte Esterase (Auto) Small (Negative) Urine RBC 0 /HPF (0-2) Urine WBC 5-10 /HPF (0-4) Urine Squamous Epithelial Cells Mod /LPF Urine Bacteria Few /HPF (0-FEW) Urine Opiates Screen Neg (NEG) Urine Methadone Screen Neg (NEG) Urine Barbiturates Neg (NEG) Urine Phencyclidine Screen Neg (NEG) Urine Amphetamine/Methamphetamine Neg (NEG) Urine Benzodiazepines Screen Neg (NEG) Urine Cocaine Screen Neg (NEG) Urine Cannabinoids Screen Neg (NEG) Urine Ethyl Alcohol Neg (NEG) Glucose (Fingerstick) 270 mg/dL (70-99) Triglycerides Level 185 mg/dL (0-150) Cholesterol Level 249 mg/dL (0-200) LDL Cholesterol, Calculated 180 mg/dL (0-100) VLDL Cholesterol, Calculated 37 mg/dL (0-40) Non-HDL Cholesterol Calculated 217 mg/dL (0-129) HDL Cholesterol 32 mg/dL (40-60) Cholesterol/HDL Ratio 7.8 Test 09/19/21 07:47 Glucose (Fingerstick) 238 mg/dL (70-99) Laboratory Tests Test 09/18/21 13:02 09/18/21 21:12 09/19/21 05:25 09/19/21 07:47 Urine Collection Type Unknown Urine Color (Auto) Light yellow Urine Turbidity Clear Urine pH (Auto) 6.5 (<5.0-8.0) Urine Specific [place] >1.050 (1.000-1.030) Urine Protein (Auto) Negative mg/dL (Negative) Urine Glucose (Auto)(UA) 500 mg/dL (Negative) Urine Ketones (Auto) Negative mg/dL (Negative) Urine Blood (Auto) Negative (Negative) Urine Nitrite Negative (Negative) Urine Bilirubin (Auto) Negative (Negative) Urine Urobilinogen (Auto) Normal mg/dL (Normal) Urine Leukocyte Esterase (Auto) Small (Negative) Urine RBC 0 /HPF (0-2) Urine WBC 5-10 /HPF (0-4) Urine Squamous Epithelial Cells Mod /LPF Urine Bacteria Few /HPF (0-FEW) Urine Opiates Screen Neg (NEG) Urine Methadone Screen Neg (NEG) Urine Barbiturates Neg (NEG) Urine Phencyclidine Screen Neg (NEG) Urine Amphetamine/Methamphetamine Neg (NEG) Urine Benzodiazepines Screen Neg (NEG) Urine Cocaine Screen Neg (NEG) Urine Cannabinoids Screen Neg (NEG) Urine Ethyl Alcohol Neg (NEG) Glucose (Fingerstick) 270 mg/dL (70-99) 238 mg/dL (70-99) Triglycerides Level 185 mg/dL (0-150) Cholesterol Level 249 mg/dL (0-200) LDL Cholesterol, Calculated 180 mg/dL (0-100) VLDL Cholesterol, Calculated 37 mg/dL (0-40) Non-HDL Cholesterol Calculated 217 mg/dL (0-129) HDL Cholesterol 32 mg/dL (40-60) Cholesterol/HDL Ratio 7.8 Medications Current Medications Iohexol (Omnipaque 300 Mg/ml) 75 ml 1X ONCE IV Last administered on 09/18/21at 09:46; Start 09/18/21 at 09:45; Stop 09/18/21 at 09:46; Status DC Info (CONTRAST GIVEN -- Rx MONITORING) 1 each PRN DAILY PRN MC SEE COMMENTS; Start 09/18/21 at 09:45; Stop 09/20/21 at 09:44 Aspirin (Aspirin Chewable) 81 mg DAILYWBKFT PO ; Start 09/18/21 at 13:00; Stop 09/18/21 at 15:20; Status DC Aspirin (Юлия Aspirin) 325 mg DAILYWBKFT PO Last administered on 09/19/21at 09:03; Start 09/19/21 at 08:00 Perflutren Protein Type A Microsphe (Optison) 0.66 mg 1X ONCE IV ; Start 09/19/21 at 07:45; Stop 09/19/21 at 07:46; Status DC Active Scripts Active Norvasc (Amlodipine Besylate) 2.5 Mg Tablet 2.5 Mg PO DAILY Reported Sertraline Hcl 50 Mg Tablet DAILY08 Atorvastatin Calcium 80 Mg Tablet HS Metformin Hcl 1,000 Mg Tablet BID Glipizide Er (Glipizide) 5 Mg Tab.er.24 Gabapentin 300 Mg Capsule 1 PO TID Vitals/I & O Vital Sign - Last 24 Hours 09/18/21 09/18/21 09/18/21 09/18/21 10:34 10:49 11:00 11:04 Pulse 86 84 86 Resp 14 14 16 B/P (MAP) 165/79 (107) 138/97 (111) 189/103 (131) Pulse Ox 94 96 95 96 O2 Delivery Room Air Room Air Room Air Room Air 09/18/21 09/18/21 09/18/21 09/18/21 11:34 12:34 12:56 15:00 Temp 98.1 98.4 98.1 98.4 Pulse 82 80 88 81 Resp 14 16 20 18 B/P (MAP) 159/79 (105) 160/80 (106) 206/91 (129) 164/86 (112) Pulse Ox 95 96 95 95 O2 Delivery Room Air Room Air Room Air Room Air 09/18/21 09/18/21 09/18/21 09/19/21 19:00 20:15 23:00 03:00 Temp 98.2 98.1 97.8 98.2 98.1 97.8 Pulse 91 79 81 Resp 18 16 16 B/P (MAP) 132/85 (101) 134/67 (89) 122/71 (88) Pulse Ox 94 97 96 O2 Delivery Room Air 09/19/21 07:00 Temp 98.5 98.5 Pulse 84 Resp 18 B/P (MAP) 136/66 (89) Pulse Ox 96 Intake and Output 09/18/21 09/18/21 09/19/21 15:00 23:00 07:00 Intake Total 300 ml Balance 300 ml Justicifation of Admission Dx: Justifications for Admission: Justification of Admission Dx: N/A Stroke - Ischemic: Stroke-Ischemic ARETHA ERVIN MD Sep 19, 2021 10:22
[2021-09-19 11:00] VITALS: BP 127/71
--- NOTE | 2021-09-19 11:23 | RAD ---
EXAM: Brain MRI without contrast. HISTORY: Cerebral infarction. Aphasia. TECHNIQUE: Multiplanar, multisequence magnetic resonance imaging of the brain was performed without c ontrast. COMPARISON: CT dated 09/18/2021. FINDINGS: There is no acute or subacute infarction. There is no mass effect or midline shift. There i s no hydrocephalus. There is a small focus of T2/FLAIR hyperintensity within the right centrum semiov lisa, a nonspecific finding. The orbits are unremarkable. The paranasal sinuses are unremarkable. Ther e is left mastoid fluid. There are normal flow voids within the cerebral vessels. There is dense ossi fication along the anterior falx, an incidental finding. There is no hemorrhage. IMPRESSION: 1. No acute intracranial finding. 2. Single small focus of signal change within the right centrum semiovale, a nonspecific finding whic h maybe secondary to chronic small vessel disease or a focus of chronic demyelination. Electronically signed by: Sumaya Menjivar MD (09/19/2021 10:00 AM) [facility]
--- NOTE | 2021-09-19 12:50 | PDOC ---
[employer] PROGRESS NOTE Date of Service DOS: DATE: 09/19/21 TIME: 12:47 Chief Complaint Chief Complaint TIA History of Present Illness History of Present Illness 09/19: Patient evaluated bedside. Tells me her speech is improving, but she anticipates it will be slow to return back to normal. MRI today and echocardiogram also pending. If normal she will discharge with family care. Will prepare patient discharge accordingly. Greater than 30 minutes spent managing discharge of this patient Vitals/I&O Vitals/I&O: Vital Signs Date Time Temp Pulse Resp B/P (MAP) Pulse Ox O2 Delivery O2 Flow Rate FiO2 09/19/21 11:00 98.2 78 18 127/71 (89) 96 98.2 09/18/21 20:15 Room Air I & O 09/18/21 09/18/21 09/19/21 15:00 23:00 07:00 Intake Total 300 ml Balance 300 ml Physical Exam General: Alert, Oriented X3, Cooperative Heart: Regular rate Lungs: Clear Abdomen: Normal bowel sounds Extremities: No clubbing Skin: No rashes Labs Labs: Laboratory Tests Test 09/18/21 13:02 09/18/21 21:12 09/19/21 05:25 09/19/21 07:47 Urine Collection Type Unknown Urine Color (Auto) Light yellow Urine Turbidity Clear Urine pH (Auto) 6.5 (<5.0-8.0) Urine Specific [place] >1.050 (1.000-1.030) Urine Protein (Auto) Negative mg/dL (Negative) Urine Glucose (Auto)(UA) 500 mg/dL (Negative) Urine Ketones (Auto) Negative mg/dL (Negative) Urine Blood (Auto) Negative (Negative) Urine Nitrite Negative (Negative) Urine Bilirubin (Auto) Negative (Negative) Urine Urobilinogen (Auto) Normal mg/dL (Normal) Urine Leukocyte Esterase (Auto) Small (Negative) Urine RBC 0 /HPF (0-2) Urine WBC 5-10 /HPF (0-4) Urine Squamous Epithelial Cells Mod /LPF Urine Bacteria Few /HPF (0-FEW) Urine Opiates Screen Neg (NEG) Urine Methadone Screen Neg (NEG) Urine Barbiturates Neg (NEG) Urine Phencyclidine Screen Neg (NEG) Urine Amphetamine/Methamphetamine Neg (NEG) Urine Benzodiazepines Screen Neg (NEG) Urine Cocaine Screen Neg (NEG) Urine Cannabinoids Screen Neg (NEG) Urine Ethyl Alcohol Neg (NEG) Glucose (Fingerstick) 270 mg/dL (70-99) 238 mg/dL (70-99) Triglycerides Level 185 mg/dL (0-150) Cholesterol Level 249 mg/dL (0-200) LDL Cholesterol, Calculated 180 mg/dL (0-100) VLDL Cholesterol, Calculated 37 mg/dL (0-40) Non-HDL Cholesterol Calculated 217 mg/dL (0-129) HDL Cholesterol 32 mg/dL (40-60) Cholesterol/HDL Ratio 7.8 Test 09/19/21 11:47 Glucose (Fingerstick) 311 mg/dL (70-99) Assessment and Plan Assessmemt and Plan Problems Medical Problems: (1) Aphasia Status: Acute Comment Review of Relevant I have reviewed the following items rik (where applicable) has been applied. Medications: Current Medications Medications (Trade) Dose Ordered Sig/Tong Route PRN Reason Start Time Stop Time Status Last Admin Dose Admin Aspirin (Юлия Aspirin) 325 mg [id number] PO 09/19/21 08:00 09/19/21 09:03 Justifications for Admission Other Justification GERMAN ARTIS MD Sep 19, 2021 12:50
[2021-09-19] MEDS ORDERED: ASPI325T8 PO (12:52)
--- NOTE | 2021-09-19 12:56 | PDOC3 ---
Discharge Summary Visit Information Date of Admission: Sep 18, 2021 Date of Discharge: Sep 19, 2021 Final Diagnosis Problems Medical Problems: (1) Aphasia Status: Acute Brief Hospital Course Allergies Allergies Coded Allergies Type Severity Reaction Last Updated Verified nitroglycerin Adverse Reaction Severe SEIZURE 09/18/21 No Vital Signs Vital Signs Date Time Temp Pulse Resp B/P (MAP) Pulse Ox O2 Delivery O2 Flow Rate FiO2 09/19/21 11:00 98.2 78 18 127/71 (89) 96 98.2 09/18/21 20:15 Room Air Lab Results Laboratory Tests Test 09/18/21 09:16 09/18/21 09:20 09/18/21 09:24 09/18/21 09:35 Glucose (Fingerstick) 267 mg/dL (70-99) White Blood Count 6.9 x10^3/uL (4.0-11.0) Red Blood Count 5.47 x10^6/uL (3.50-5.40) Hemoglobin 15.2 g/dL (12.0-15.5) Hematocrit 46.8 % (36.0-47.0) Mean Corpuscular Volume 86 fL (79-100) Mean Corpuscular Hemoglobin 28 pg (25-35) Mean Corpuscular Hemoglobin Concent 33 g/dL (31-37) Red Cell Distribution Width 13.1 % (11.5-14.5) Platelet Count 279 x10^3/uL (140-400) Neutrophils (%) (Auto) 62 % (31-73) Lymphocytes (%) (Auto) 29 % (24-48) Monocytes (%) (Auto) 8 % (0-9) Eosinophils (%) (Auto) 1 % (0-3) Basophils (%) (Auto) 1 % (0-3) Neutrophils # (Auto) 4.2 x10^3/uL (1.8-7.7) Lymphocytes # (Auto) 2.0 x10^3/uL (1.0-4.8) Monocytes # (Auto) 0.5 x10^3/uL (0.0-1.1) Eosinophils # (Auto) 0.1 x10^3/uL (0.0-0.7) Basophils # (Auto) 0.1 x10^3/uL (0.0-0.2) Prothrombin Time 11.8 SEC (11.7-14.0) Prothromb Time International Ratio 0.9 (0.8-1.1) Activated Partial Thromboplast Time 17 SEC (24-38) D-Dimer (Ute) 0.50 ug/mlFEU (0.00-0.50) Sodium Level 140 mmol/L (136-145) Potassium Level 4.0 mmol/L (3.5-5.1) Chloride Level 103 mmol/L (98-107) Carbon Dioxide Level 27 mmol/L (21-32) Anion Gap 10 (6-14) Blood Urea Nitrogen 15 mg/dL (7-20) Creatinine 0.8 mg/dL (0.6-1.0) Estimated GFR (Cockcroft-Gault) 71.5 BUN/Creatinine Ratio 19 (6-20) Glucose Level 285 mg/dL (70-99) Lactic Acid Level 1.2 mmol/L (0.4-2.0) Calcium Level 8.4 mg/dL (8.5-10.1) Magnesium Level 1.9 mg/dL (1.8-2.4) Total Bilirubin 0.3 mg/dL (0.2-1.0) Aspartate Amino Transf (AST/SGOT) 13 U/L (15-37) Alanine Aminotransferase (ALT/SGPT) 20 U/L (14-59) Alkaline Phosphatase 108 U/L (46-116) Troponin I High Sensitivity 7 ng/L (4-50) WU-Nol-O-Type Natriuretic Peptide 37 pg/mL (0-124) Total Protein 6.4 g/dL (6.4-8.2) Albumin 2.9 g/dL (3.4-5.0) Albumin/Globulin Ratio 0.8 (1.0-1.7) Lipase 80 U/L (73-393) Salicylates Level 1.4 mg/dL (2.8-20.0) Salicylate Last Dose Date Unknown Salicylate Last Dose Time Unknown Acetaminophen Level < 2 mcg/ml (10-30) Acetaminophen Last Dose Date Unknown Acetaminophen Last Dose Time Unknown Ethyl Alcohol Level < 10 mg/dL (0-10) O2 Saturation 94 % (92-99) Arterial Blood pH 7.38 (7.35-7.45) Arterial Blood pCO2 at Patient Temp 39 mmHg (35-46) Arterial Blood pO2 at Patient Temp 75 mmHg (65-108) Arterial Blood HCO3 22 mmol/L (21-28) Arterial Blood Base Excess -3 mmol/L (-3-3) FiO2 Ra Ammonia 11 mcmol/L (11-34) Test 09/18/21 10:12 09/18/21 13:02 09/18/21 21:12 09/19/21 05:25 Influenza Type A Antigen Negative (NEGATIVE) Influenza Type B Antigen Negative (NEGATIVE) SARS-CoV-2 Antigen (Rapid) Negative (NEGATIVE) Urine Collection Type Unknown Urine Color (Auto) Light yellow Urine Turbidity Clear Urine pH (Auto) 6.5 (<5.0-8.0) Urine Specific [place] >1.050 (1.000-1.030) Urine Protein (Auto) Negative mg/dL (Negative) Urine Glucose (Auto)(UA) 500 mg/dL (Negative) Urine Ketones (Auto) Negative mg/dL (Negative) Urine Blood (Auto) Negative (Negative) Urine Nitrite Negative (Negative) Urine Bilirubin (Auto) Negative (Negative) Urine Urobilinogen (Auto) Normal mg/dL (Normal) Urine Leukocyte Esterase (Auto) Small (Negative) Urine RBC 0 /HPF (0-2) Urine WBC 5-10 /HPF (0-4) Urine Squamous Epithelial Cells Mod /LPF Urine Bacteria Few /HPF (0-FEW) Urine Opiates Screen Neg (NEG) Urine Methadone Screen Neg (NEG) Urine Barbiturates Neg (NEG) Urine Phencyclidine Screen Neg (NEG) Urine Amphetamine/Methamphetamine Neg (NEG) Urine Benzodiazepines Screen Neg (NEG) Urine Cocaine Screen Neg (NEG) Urine Cannabinoids Screen Neg (NEG) Urine Ethyl Alcohol Neg (NEG) Glucose (Fingerstick) 270 mg/dL (70-99) Triglycerides Level 185 mg/dL (0-150) Cholesterol Level 249 mg/dL (0-200) LDL Cholesterol, Calculated 180 mg/dL (0-100) VLDL Cholesterol, Calculated 37 mg/dL (0-40) Non-HDL Cholesterol Calculated 217 mg/dL (0-129) HDL Cholesterol 32 mg/dL (40-60) Cholesterol/HDL Ratio 7.8 Test 09/19/21 07:47 09/19/21 11:47 Glucose (Fingerstick) 238 mg/dL (70-99) 311 mg/dL (70-99) Laboratory Tests Test 09/18/21 13:02 09/18/21 21:12 09/19/21 05:25 09/19/21 07:47 Urine Collection Type Unknown Urine Color (Auto) Light yellow Urine Turbidity Clear Urine pH (Auto) 6.5 (<5.0-8.0) Urine Specific [place] >1.050 (1.000-1.030) Urine Protein (Auto) Negative mg/dL (Negative) Urine Glucose (Auto)(UA) 500 mg/dL (Negative) Urine Ketones (Auto) Negative mg/dL (Negative) Urine Blood (Auto) Negative (Negative) Urine Nitrite Negative (Negative) Urine Bilirubin (Auto) Negative (Negative) Urine Urobilinogen (Auto) Normal mg/dL (Normal) Urine Leukocyte Esterase (Auto) Small (Negative) Urine RBC 0 /HPF (0-2) Urine WBC 5-10 /HPF (0-4) Urine Squamous Epithelial Cells Mod /LPF Urine Bacteria Few /HPF (0-FEW) Urine Opiates Screen Neg (NEG) Urine Methadone Screen Neg (NEG) Urine Barbiturates Neg (NEG) Urine Phencyclidine Screen Neg (NEG) Urine Amphetamine/Methamphetamine Neg (NEG) Urine Benzodiazepines Screen Neg (NEG) Urine Cocaine Screen Neg (NEG) Urine Cannabinoids Screen Neg (NEG) Urine Ethyl Alcohol Neg (NEG) Glucose (Fingerstick) 270 mg/dL (70-99) 238 mg/dL (70-99) Triglycerides Level 185 mg/dL (0-150) Cholesterol Level 249 mg/dL (0-200) LDL Cholesterol, Calculated 180 mg/dL (0-100) VLDL Cholesterol, Calculated 37 mg/dL (0-40) Non-HDL Cholesterol Calculated 217 mg/dL (0-129) HDL Cholesterol 32 mg/dL (40-60) Cholesterol/HDL Ratio 7.8 Test 09/19/21 11:47 Glucose (Fingerstick) 311 mg/dL (70-99) Brief Hospital Course Ms. King is a 66 old female who presented with TIA. Consultation was placed to neurology. She had MRI that showed no acute intracranial finding, a single small focus of signal change within the right centrum semiovale, a nonspecific finding which maybe secondary to chronic small vessel disease or a focus of chronic demyelination. She was discharged home with family care on high-dose aspirin and high-dose atorvastatin. Discharge Information Condition at Discharge: Stable Disposition/Orders: D/C to Home Scheduled Atorvastatin Calcium (Atorvastatin Calcium) 80 Mg Tablet, HS, #30 (Reported) Entered as Reported by: PEDRO CONNOLLY on 04/09/151908 Discontinued Medications Amlodipine Besylate (Norvasc) 2.5 Mg Tablet, 2.5 MG PO DAILY, #30 Discontinued Reason: NOT TAKING Prescribed by: VIVEK HUNTER on 04/12/15 1130 Last Action: Discontinued on 09/19/211204 by Lexis Bernstein RPH Gabapentin (Gabapentin ) 300 Mg Capsule, 1 PO TID, #90 (Reported) Discontinued Reason: NOT TAKING Entered as Reported by: PEDRO CONNOLLY on 04/09/151908 Last Action: Discontinued on 09/19/211204 by Lexis Bernstein RPH Glipizide (Glipizide Er) 5 Mg Tab.er.24, #30 (Reported) Discontinued Reason: NOT TAKING Entered as Reported by: PEDRO CONNOLLY on 04/09/151908 Last Action: Discontinued on 09/19/211204 by Lexis Bernstein RPH Metformin Hcl (Metformin Hcl) 1,000 Mg Tablet, BID, #60 (Reported) Discontinued Reason: NOT TAKING Entered as Reported by: PEDRO CONNOLLY on 04/09/151908 Last Action: Discontinued on 09/19/211204 by Lexis Bernstein RPH Sertraline Hcl (Sertraline Hcl) 50 Mg Tablet, DAILY08, #30 (Reported) Discontinued Reason: NOT TAKING Entered as Reported by: PEDRO CONNOLLY on 04/09/151908 Last Action: Discontinued on 09/19/211204 by Lexis Bernstein RPH Justicifation of Admission Dx: Justifications for Admission: Justification of Admission Dx: N/A Stroke - Ischemic: Stroke-Ischemic GERMAN ARTIS MD Sep 19, 2021 12:56
--- NOTE | 2021-09-19 14:52 | CARD ---
MR#: [id number] Date of Study: 09/19/2021 Ordering Physician: ARETHA ERVIN, Referring Physician: ARETHA ERVIN, Tech: Geetha See [facility] [place] APPROVED REPORT EXAM: Two-dimensional and M-mode echocardiogram with Doppler and color Doppler. Other Information Quality : AverageHR: 73bpm Rhythm : NSR INDICATION Chest Pain RISK FACTORS Hypertension Obesity 2D DIMENSIONS RVDd2.3 (2.9-3.5cm)Left Atrium(2D)3.6 (1.6-4.0cm) IVSd1.0 (0.7-1.1cm)Aortic Root(2D)2.9 (2.0-3.7cm) LVDd3.4 (3.9-5.9cm)LVOT Diameter2.0 (1.8-2.4cm) PWd1.1 (0.7-1.1cm)LVDs2.2 (2.5-4.0cm) FS (%) 36.9 %SV32.5 ml LVEF(%)68.0 (>50%) Aortic Valve AoV Peak Christian.144.4cm/sAoV VTI27.4cm AO Peak GR.8.3mmHgLVOT Peak Christian.115.8cm/s AO Mean GR.5mmHgAVA (VMAX)2.47cm2 Mitral Valve MV E Fzicykss59.7cm/sMV DECEL [id number] MV A Aqasvhii41.5cm/sE/A Ratio0.6 Pulmonary Valve PV Peak Fifgxzff66.0cm/s LEFT VENTRICLE The left ventricle is normal size. There is normal left ventricular wall thickness. The left ventricu lar systolic function is normal and the ejection fraction is within normal range. Estimated ejection fraction 55-60%. There is normal LV segmental wall motion. Transmitral Doppler flow pattern is Grade I-abnormal relaxation pattern. RIGHT VENTRICLE The right ventricle is normal size. There is normal right ventricular wall thickness. The right ventr icular systolic function is normal. ATRIA The left atrium size is normal. The right atrium size is normal. The interatrial septum is intact wit h no evidence for an atrial septal defect or patent foramen ovale as noted on 2-D or Doppler imaging. AORTIC VALVE The aortic valve is normal in structure and function. Doppler and Color Flow revealed no significant aortic regurgitation. There is no significant aortic valvular stenosis. MITRAL VALVE The mitral valve is normal in structure and function. There is no evidence of mitral valve prolapse. There is no mitral valve stenosis. Doppler and Color Flow revealed no mitral valve regurgitation note d. TRICUSPID VALVE The tricuspid valve is normal in structure and function. Doppler and Color Flow revealed no tricuspid valve regurgitation noted. There is no tricuspid valve stenosis. PULMONIC VALVE Doppler and Color Flow revealed trace pulmonic valvular regurgitation. There is no pulmonic valvular stenosis. GREAT VESSELS The aortic root is normal in size. The ascending aorta is normal in size. The IVC is normal in size a nd collapses >50% with inspiration. PERICARDIAL EFFUSION There is no evidence of significant pericardial effusion. Critical Notification Critical Value: No <Conclusion> The left ventricular systolic function is normal and the ejection fraction is within normal range. E stimated ejection fraction 55-60%. There is normal LV segmental wall motion. Signed by : Mart Keene, Electronically Approved : 09/19/2021 14:52:06
[2021-09-19 15:00] VITALS: BP 152/48
[2021-09-19] MEDS ORDERED: METF500T16 PO (17:03)
[2021-09-19] MEDS ORDERED: ATORVASTATIN CALCIUM 40 MG TABLET. PO SCH (21:00)
[2021-09-20 06:14] LABS: HEMOGLOBIN A1C 10.9 % (4.8-5.6)
== END 2021-09-19 18:00 | disposition home or self-care (01) ==
LOC: ER 09:12 → 2 NORTH 11:20
PROVIDERS: ADMIT Internal Medicine; ATTEND Internal Medicine
DX: G45.9 Transient cerebral ischemic attack, unspecified (principal); Z20.822 Contact with and (suspected) exposure to COVID-19; R47.01 Aphasia; I10 Essential (primary) hypertension; E11.9 Type 2 diabetes mellitus without complications; I63.9 Cerebral infarction, unspecified; E78.00 Pure hypercholesterolemia, unspecified; E78.5 Hyperlipidemia, unspecified; J98.11 Atelectasis; R29.700 NIHSS score 0; Z79.84 Long term (current) use of oral hypoglycemic drugs; Z79.899 Other long term (current) drug therapy; Z86.73 Personal history of transient ischemic attack (TIA), and cerebral infarction without residual deficits; Z90.49 Acquired absence of other specified parts of digestive tract; Z96.659 Presence of unspecified artificial knee joint; Z98.890 Other specified postprocedural states; Z79.82 Long term (current) use of aspirin
CPT/HCPCS: 36415; 36600; 70450; 70496; 70551; 71045; 80053; 80061; 80307; 80329; 81001; 82140; 82805; 82962; 83036; 83605; 83690; 83735; 83880; 84484; 85025; 85379; 85610; 85730; 87086; 87428; 92610; 93005; 93306; 97165; 99285; G0378; G0480; Q9967; G0379; C8929